=== PATIENT | female | born 1950 | race Caucasian/White ===

== ENCOUNTER → 2016-12-09 | Outpatient (CLI) | payer MEDICARE, BC ==
[~2016-12-09] MED LIST: AMITRIPTYLINE25 MG PO; ATIVAN 1MG T1 MG/TAB PO; COMBIVENT INH14.7 GM IH; DAZIDOX10 MG PO; DIFLUCAN200 MG PO; FLAGYL500 MG PO; FLONASE NASAL S16 GM NS; GLEEVEC400 MG PO; IMMODIUM; KLONOPIN0.5 MG PO; LEVAQUIN 750MG750 M1 PO; LEXAPRO 10MG10 MG PO; LIPITOR 10MG10 MG PO; PREDNISONE10 MG PO; PRIL40 PO; PRILOSEC20 MG PO; PROBIOTIC FORMU1 CAP PO; RT ADVAIR 228 DISKUS INH; ZESTRIL 20MG TA20 MG PO; ZOFRAN 4MG T4 MG/TAB PO; ZYRTEC 10MG10 MG PO; ZYRTEC10 MG PO; [UNRECOGNIZED DRUG - OTHER]
== END ==
LOC: BHSO 10:30
DX: F06.32 Mood disorder due to known physiological condition with major depressive-like episode (principal)

== ENCOUNTER → 2017-01-06 | Outpatient (CLI) | payer MEDICARE, BC | LOC: BHSO 09:34 | DX: F33.42 Major depressive disorder, recurrent, in full remission (principal) ==

== ENCOUNTER → 2017-04-07 | Outpatient (CLI) | payer MEDICARE, BC | LOC: BHSO 09:35 | DX: F06.32 Mood disorder due to known physiological condition with major depressive-like episode (principal) ==

== ENCOUNTER → 2017-07-07 | Outpatient (CLI) | payer MEDICARE, BC | LOC: BHSO 10:01 | DX: F06.32 Mood disorder due to known physiological condition with major depressive-like episode (principal) ==

== ENCOUNTER → 2018-01-05 | Outpatient (CLI) | payer MEDICARE, BC | LOC: BHSO 09:56 | DX: F06.32 Mood disorder due to known physiological condition with major depressive-like episode (principal) | CPT/HCPCS: G0463 ==

== ENCOUNTER → 2018-07-06 | Outpatient (CLI) | payer MEDICARE, BC | LOC: BHSO 13:14 | DX: F06.32 Mood disorder due to known physiological condition with major depressive-like episode (principal) | CPT/HCPCS: G0463 ==

== ENCOUNTER → 2018-09-14 | Outpatient (CLI) | payer MEDICARE, BC | LOC: BHSO 10:51 | DX: F06.32 Mood disorder due to known physiological condition with major depressive-like episode (principal) | CPT/HCPCS: G0463 ==

== ENCOUNTER → 2018-11-02 | Outpatient (CLI) | payer MEDICARE, BC ==
[~2018-11-02] MED LIST changes: +ALDACTONE 25MG25 M1 PO; +ATIVAN 0.50.5 MG/TAB; +COLCRYS0.6 MG PO; +DESYREL 50MG50 MG PO; +FLEXERIL 1010 MG/TAB PO; +LASIX 20MG TABL20 MG PO; +MAGNESIUM200 MG PO; +MICRO-K 10 EXT10 MEQ PO; +PRISTIQ 50 MG T50 MG PO
[2018-11-02 10:12] LABS: HEMOGLOBIN 10.5 g/dl (12.5-16.0); MEAN CELL VOLUME 95 fl (80.0-100.0); MEAN CORPUSCULAR HEMOGLOBIN 31 pg (27.0-31.0); MEAN CORPUSCULAR HGB CONC 32 g/dl (33.0-37.0); MEAN PLATELET VOLUME 8.9 fl (7.4-10.4); PLATELET COUNT 762 K/mm3 (130-400); RED BLOOD COUNT 3.44 M/mm3 (4.10-5.30); REDCELL DISTRIBUTION WIDTH-CV 15.9 % (11.5-14.5)
[2018-11-02 10:15] LABS: HEMATOCRIT 32.5 % (37.0-47.0)
[2018-11-02 10:23] LABS: CALCIUM 9.6 mg/dL (8.4-10.2); CREATININE, serum 1.34 mg/dL (0.52-1.25); POTASSIUM 4.7 mmol/L (3.4-5.0)
== END ==
LOC: COL.RAD 09:54
PROVIDERS: Physician Assistant
DX: N18.9 Chronic kidney disease, unspecified (principal); D64.9 Anemia, unspecified; J90 Pleural effusion, not elsewhere classified

== ENCOUNTER → 2019-02-15 | Outpatient (CLI) | payer MEDICARE, BC ==
[~2019-02-15] MED LIST changes: +PREDNISONE20 MG PO
== END ==
LOC: BHSO 10:20
DX: F06.32 Mood disorder due to known physiological condition with major depressive-like episode (principal)
CPT/HCPCS: G0463

== ENCOUNTER → 2019-04-14 | Outpatient (CLI) | payer MEDICARE, BC | LOC: BHSO 13:55 | DX: F06.32 Mood disorder due to known physiological condition with major depressive-like episode (principal) | CPT/HCPCS: G0463 ==

== ENCOUNTER → 2019-07-14 | Outpatient (CLI) | payer MEDICARE, BC | LOC: BHSO 09:18 | DX: F06.32 Mood disorder due to known physiological condition with major depressive-like episode (principal) | CPT/HCPCS: G0463 ==

== ENCOUNTER → 2019-10-20 | Outpatient (CLI) | payer MEDICARE, BC | LOC: BHSO 09:48 | DX: F06.32 Mood disorder due to known physiological condition with major depressive-like episode (principal) | CPT/HCPCS: G0463 ==

== ENCOUNTER → 2019-11-17 | Outpatient (CLI) | payer MEDICARE, BC | LOC: BHSO 09:43 | DX: F06.32 Mood disorder due to known physiological condition with major depressive-like episode (principal) | CPT/HCPCS: G0463 ==